=== PATIENT | female | born 1935 | race Hispanic/Latino ===

== ENCOUNTER → 2020-06-02 | Outpatient (CLI) | payer MEDICARE, MEDICAID ==
[~2020-06-02] VITALS: Ht 157.5 cm; Wt 81.2 kg
[~2020-06-02] MED LIST: REGADENOSON 0.4 MG/5 ML PF SYG IVP SCH
== END | disposition home or self-care (01) ==
LOC: SHCH 08:00
PROVIDERS: ATTEND Internal Medicine Cardiovascular Disease
DX: I25.10 Atherosclerotic heart disease of native coronary artery without angina pectoris (principal); I10 Essential (primary) hypertension
CPT/HCPCS: 78452; 93017; A9500 ×2; J2785; 96374